=== PATIENT | male | born 1965 | race Hispanic/Latino ===

== ENCOUNTER 2023-01-17 17:26 | Emergency (ER) | payer SELFPAY ==
--- NOTE | 2023-01-17 19:11 | RAD REPORT ---
EXAM DESCRIPTION: RAD - Chest Single View - 01/17/2023 7:04 pm CLINICAL HISTORY: SWELLING Chest pain. COMPARISON: No comparisons FINDINGS: Portable technique limits examination quality. Mild interstitial pulmonary edema. The heart is mildly enlarged in size. No displaced fractures. IMPRESSION: Mild CHF.
--- NOTE | 2023-01-17 19:21 | RAD REPORT ---
EXAM DESCRIPTION: US - Extrem Venous W Compress Gagan - 01/17/2023 7:16 pm CLINICAL HISTORY: Swelling;Pain Bilateral leg edema and swelling. COMPARISON: No comparisons TECHNIQUE: Real-time sonographic interrogation of the left and right lower extremity deep venous sys tems was performed. FINDINGS: Normal compressibility, flow augmentation, phasic flow and spontaneous flow is identified in both the left and right lower extremity deep venous systems. IMPRESSION: No sonographic evidence of left or right lower extremity deep venous thrombosis.
[2023-01-17] MEDS ORDERED: FUROSEMIDE 20 MG/ 2ML VIAL ONE (20:42)
[2023-01-17 21:17] LABS: Absolute Lymphocytes (CBC) 1.2 K/uL (0.7-4.9); Hematocrit 44.5 % (39.6-49.0); Lymphocytes % 22.4 % (15.3-44.8); MCV 89.6 fL (80-100); MPV 7.6 fL (7.6-11.3); RBC Red Blood Cell Count 4.97 M/uL (4.33-5.43)
[2023-01-17 22:22] LABS: Protime INR 1.08
[2023-01-17 22:35] LABS: Albumin 3.5 g/dL (3.4-5.0); Bilirubin Direct 0.2 mg/dL (0-0.2); Bilirubin Indirect, Calculated 0.5 mg/dL (0.2-0.8); Bilirubin Total 0.7 mg/dL (0.2-1.0); Magnesium 2.2 mg/dL (1.6-2.4); Potassium 3.3 mEq/L (3.5-5.1); Protein, Total 7.3 g/dL (6.4-8.2); Troponin High Sensitivity 7.7 pg/mL (<58.9)
--- NOTE | 2023-01-17 23:12 | EDPHYS ---
Physician Documentation [facility] Name: Ashko Pruett Age: 57 yrs Sex: Male : 1965 Arrival Date: 01/17/2023 Time: 17:26 Bed 14 Private MD: ED Physician Jase Sparks HPI: 01/17 18:00 This 57 yrs old Male presents to ER via Ambulatory with complaints of Leg Pain.cp 18:00 The patient presents with swelling, tenderness, erythema. The complaints affect the cp left lower leg and right lower leg. Context: resulted from an unknown cause, the patient can fully bear weight, the patient is able to ambulate, with mild difficulty. Onset: The symptoms/episode began/occurred 3 day(s) ago. 18:00 Associated signs and symptoms: Pertinent positives: calf tenderness, swelling, warmth, cp Pertinent negatives fever, numbness. 18:00 Patient reports in the past he was treated for fluid buildup but has been taking water cp pill from [place] that has not helped. Historical: - Allergies: 17:37 No Known Allergies; cm10 - PMHx: 17:37 Hypertensive disorder; cm10 - Immunization history:: Adult Immunizations up to date, . - Social history:: Smoking status: Patient denies any tobacco usage or history of. Patient/guardian denies using. ROS: 18:05 Eyes: Negative for injury, pain, redness, and discharge. cp 18:05 Constitutional: Negative for body aches, chills, fever, poor PO intake. 18:05 ENT: Negative for drainage from ear(s), ear pain, sore throat, difficulty swallowing, difficulty handling secretions. 18:05 Cardiovascular: Positive for edema, Negative for chest pain, palpitations. 18:05 Respiratory: Positive for shortness of breath, Negative for cough, wheezing. 18:05 Abdomen/GI: Negative for abdominal pain, nausea, vomiting, and diarrhea. 18:05 Neuro: Negative for altered mental status, dizziness, headache, numbness, syncope, weakness. 18:05 All other systems are negative. Exam: 18:10 Constitutional: The patient appears in no acute distress, alert, awake, cp non-diaphoretic, non-toxic, well developed, well nourished, obese. 18:10 Head/Face: Normocephalic, atraumatic. cp 18:10 Eyes: Periorbital structures: appear normal, Conjunctiva: normal, no exudate, no injection, Sclera: no appreciated abnormality, Lids and lashes: appear normal, bilaterally. 18:10 ENT: External ear(s): are unremarkable, Nose: is normal, Mouth: Lips: moist, Oral mucosa: pink and intact, moist, Posterior pharynx: is normal, airway is patent, no erythema, no exudate. 18:10 Neck: ROM/movement: is normal, is supple, without pain, no range of motions limitations. 18:10 Chest/axilla: Inspection: normal. 18:10 Cardiovascular: Rate: normal, Rhythm: regular, Edema: pedal edema, that is moderate, ankle edema, that is moderate, JVD: is not appreciated. 18:10 Respiratory: the patient does not display signs of respiratory distress, Respirations: normal, no use of accessory muscles, no retractions, labored breathing, is not present, Breath sounds: are clear throughout, no decreased breath sounds, no stridor, no wheezing. 18:10 Abdomen/GI: Inspection: obese Palpation: abdomen is soft and non-tender, in all quadrants. 18:10 Back: pain, is absent, ROM is normal. 18:10 Skin: cellulitis, that is moderate, well demarcated, on the left lower leg and right lower leg. 18:10 Neuro: Orientation: to person, place \T\ time. Mentation: is normal, Motor: moves all fours, strength is normal. 18:17 ECG was reviewed by the Attending Physician. cp Vital Signs: 17:34 BP 132 / 81; Pulse 81; Resp 17; Temp 98.1; Pulse Ox 96% ; Weight 131.09 kg; Height 5 cm10 ft. 10 in. ; Pain 1/10; 18:10 BP 142 / 76; Pulse 72; Resp 14; Pulse Ox 97% on R/A; db 21:30 BP 141 / 85; Pulse 73; Resp 18; Pulse Ox 98% on R/A; ha1 22:30 BP 128 / 70; Pulse 75; Resp 20 S; Pulse Ox 97% on R/A; ha1 23:30 BP 113 / 67; Pulse 83; Resp 18 S; Pulse Ox 96% on R/A; ha1 17:34 Body Mass Index 41.47 (131.09 kg, 177.8 cm) cm10 17:34 Pain Scale: Adult cm10 MDM: 17:43 Patient medically screened. cp 20:00 Differential diagnosis: DVT, cellulitis, sepsis. cp 23:10 Data reviewed: vital signs, nurses notes, lab test result(s), EKG, radiologic studies, cp plain films, ultrasound. 23:10 Consideration of Admission/Observation Escalation of care including cp admission/observation considered. I considered the following discharge prescriptions or medication management in the emergency department Medications were administered in the Emergency Department. See MAR. Care significantly affected by the following chronic conditions: Hypertension, Obesity. Counseling: I had a detailed discussion with the patient and/or guardian regarding: the historical points, exam findings, and any diagnostic results supporting the discharge/admit diagnosis, lab results, radiology results, the need for outpatient follow up, a family practitioner, to return to the emergency department if symptoms worsen or persist or if there are any questions or concerns that arise at home. ED course: VSS. Labs and radiology studies reviewed. Will treat outpatient and discharge to home for continued monitoring. 01/17 17:44 Order name: Basic Metabolic Panel; Complete Time: 22:37 cp 06/08 22:42 Interpretation: Normal except: K 3.3; GLUC 113. cp / 17:44 Order name: CBC with Diff; Complete Time: 21:26 cp 06/08 17:44 Order name: LFT's; Complete Time: 22:37 cp 06/08 17:44 Order name: Magnesium; Complete Time: 22:37 cp /08 17:44 Order name: NT PRO-BNP; Complete Time: 22:37 cp 06/08 22:44 Interpretation: Reviewed. cp 06/08 17:44 Order name: PT-INR; Complete Time: 22:37 cp 06/08 17:44 Order name: Troponin HS; Complete Time: 22:37 cp 06/08 22:43 Interpretation: Troponin HS 7.7; Reviewed. cp 06/08 19:47 Order name: Lactate w/ 2H reflex if indic.; Complete Time: 21:54 cp 06/08 19:47 Order name: Blood Culture Adult (2) cp 06/08 19:48 Order name: Urinalysis W/Microscopic cp /08 17:44 Order name: XRAY Chest (1 view); Complete Time: 19:23 cp 06/08 17:44 Order name: US Extremity Venous W Compression Gagan; Complete Time: 19:23 cp 01/17 17:44 Order name: EKG; Complete Time: 17:46 cp 01/17 17:44 Order name: Cardiac monitoring; Complete Time: 18:18 cp 01/17 17:44 Order name: EKG - Nurse/Tech; Complete Time: 18:18 cp 01/17 17:44 Order name: IV Saline Lock; Complete Time: 18:18 cp 01/17 17:44 Order name: Labs collected and sent; Complete Time: 18:18 cp 01/17 17:44 Order name: O2 Per Protocol; Complete Time: 18:18 cp 01/17 17:44 Order name: O2 Sat Monitoring; Complete Time: 18:18 cp 01/17 21:25 Order name: Misc. Order: Recollect BLUE AND GREEN TOP; Complete Time: 21:45 rv1 EC:17 Rate is 74 beats/min. Rhythm is regular. GA interval is normal. QRS interval is normal. cp QT interval is normal. Interpreted by me. Reviewed by me. Administered Medications: 20:40 Drug: Furosemide IVP 20 mg Route: IVP; Site: left antecubital; ha1 21:00 Follow up: Response: No adverse reaction ha1 23:08 Drug: Piperacillin-Tazobactam IVPB 4.5 grams Route: IVPB; Infused Over: 60 mins; Site: ha1 left antecubital; 01/18 00:03 Follow up: Response: No adverse reaction; IV Status: Completed infusion; IV Intake: ha1 100ml Disposition: :19 Co-signature as Attending Physician, Jase FITCH was immediately available on-site ms3 in the Emergency Department for consultation in the care of the patient. Disposition Summary: 01/17/23 23:11 Discharge Ordered Location: Home cp Problem: new cp Symptoms: have improved cp Condition: Stable cp Diagnosis - Cellulitis of left lower limb cp - Cellulitis of right lower limb cp - Edema, unspecified cp Followup: cp - With: Private Physician - When: 1 - 2 days - Reason: Recheck today's complaints Discharge Instructions: - Discharge Summary Sheet cp - Cellulitis, Adult cp - Edema cp Forms: - Medication Reconciliation Form cp - Thank You Letter cp - Antibiotic Education cp - Prescription Opioid Use cp Prescriptions: - Augmentin 875-125 mg Oral Tablet - take 1 tablet by ORAL route every 12 hours for 10 days; 20 tablet; Refills: 0, cp Product Selection Permitted - Lasix 20 mg Oral Tablet - take 1 tablet by ORAL route once daily for 7 days; 14 tablet; Refills: 0, cp Product Selection Permitted Signatures: Dispatcher [employer] EDMS Michael Reaves, MANAGER OF PMO-C MANAGER OF PMO-Cla1 Jeremiah Lu PA PA Jase Harris DO DO ms3 Brigida Saldaña, RN RN ha1 Ashley Gruber rv1 Whitney Davidson, RN RN cm10 Corrections: (The following items were deleted from the chart) 01/19 00:01/18 18:05 Constitutional: Negative for body aches, chills, fever, poor PO intake, cp cp 01/19 00:01/18 18:05 Cardiovascular: Positive for edema, Negative for chest pain, palpitations, cp cp 01/19 00:01/18 18:05 Respiratory: Positive for shortness of breath, Negative for cough, cp wheezing, cp 01/19 00:01/18 18:05 Abdomen/GI: Negative for abdominal pain, nausea, vomiting, and diarrhea, cp cp 01/19 00:01/18 18:05 Eyes: Negative for injury, pain, redness, and discharge, cp cp 01/19 00:01/18 18:05 ENT: Negative for drainage from ear(s), ear pain, sore throat, difficulty cp swallowing, difficulty handling secretions, cp 01/19 00:01/18 18:05 Neuro: Negative for altered mental status, dizziness, headache, numbness, cp syncope, weakness, cp 01/19 00:01/18 18:05 All other systems are negative, cp cp
--- NOTE | 2023-01-17 23:12 | ER ---
Nurse's Notes [facility] Name: Ashok Pruett Age: 57 yrs Sex: Male : 1965 Arrival Date: 01/17/2023 Time: 17:26 Bed 14 Private MD: Diagnosis: Cellulitis of left lower limb;Cellulitis of right lower limb;Edema, unspecified Presentation: 01/17 17:34 Chief complaint: Patient states: Pt reports bilateral leg pain and swelling x3 days. cm10 Patient states that the left leg is more swollen than the right. Coronavirus screen: Vaccine status: Patient reports being unvaccinated. Ebola Screen: No symptoms or risks identified at this time. Initial Sepsis Screen: Does the patient meet any 2 criteria? No. Patient's initial sepsis screen is negative. Does the patient have a suspected source of infection? No. Patient's initial sepsis screen is negative. Risk Assessment: Do you want to hurt yourself or someone else? Patient reports no desire to harm self or others. Onset of symptoms was January 14, 2023. 17:34 Method Of Arrival: Ambulatory cm10 17:34 Acuity: [place] 3 cm10 Triage Assessment: 17:37 General: Appears in no apparent distress. distressed, comfortable, Behavior is calm, cm10 cooperative, appropriate for age. Pain: Complains of pain in right leg and left leg Pain Quality of pain is described as sensitivity Pain began Is. Musculoskeletal: Reports pain and swelling. Historical: - Allergies: 17:37 No Known Allergies; cm10 - PMHx: 17:37 Hypertensive disorder; cm10 - Immunization history:: Adult Immunizations up to date, . - Social history:: Smoking status: Patient denies any tobacco usage or history of. Patient/guardian denies using. Screenin:20 [facility] ED Fall Risk Assessment (Adult) History of falling in the last 3 months, db including since admission No falls in past 3 months (0 pts) Confusion or Disorientation No (0 pts) Intoxicated or Sedated No (0 pts) Impaired Gait No (0 pts) Mobility Assist Device Used No (0 pt) Altered Elimination No (0 pt) Score/Fall Risk Level 0 - 2 = Low Risk Oriented to surroundings, Maintained a safe environment. Abuse screen: Denies threats or abuse. Denies injuries from another. Nutritional screening: No deficits noted. Tuberculosis screening: No symptoms or risk factors identified. Assessment: 18:19 Reassessment: Patient appears in no apparent distress at this time. Patient and/or db family updated on plan of care and expected duration. Pain level reassessed. Patient is alert, oriented x 3, equal unlabored respirations, skin warm/dry/pink. bilateral leg swelling and redness. General: Appears in no apparent distress. comfortable, Behavior is calm, cooperative. Pain: Complains of pain in right leg and left leg. Neuro: Level of Consciousness is awake, alert, obeys commands, Oriented to person, place, time, situation, Speech is normal. Respiratory: Airway is patent Respiratory effort is even, unlabored, Respiratory pattern is regular, symmetrical. Derm:. 19:15 General: Appears comfortable, Behavior is calm, cooperative. Pain: Complains of pain in ha1 right leg and left leg Pain does not radiate. Pain currently is 4 out of 10 on a pain scale. Neuro: Level of Consciousness is awake, alert, obeys commands, Oriented to person, place, time, situation. Cardiovascular: Patient's skin is warm and dry. Respiratory: Airway is patent Respiratory effort is even, unlabored, Respiratory pattern is regular, symmetrical. GI: No signs and/or symptoms were reported involving the gastrointestinal system. Abdomen is non-distended, obese. : No signs and/or symptoms were reported regarding the genitourinary system. EENT: No signs and/or symptoms were reported regarding the EENT system. Derm: Skin is normal. Musculoskeletal: Swelling present in right leg and left leg. 20:30 Reassessment: Patient and/or family updated on plan of care and expected duration. Pain ha1 level reassessed. Patient is alert, oriented x 3, equal unlabored respirations, skin warm/dry/pink. 21:30 Reassessment: Patient and/or family updated on plan of care and expected duration. Pain ha1 level reassessed. Patient is alert, oriented x 3, equal unlabored respirations, skin warm/dry/pink. 22:30 Reassessment: Patient and/or family updated on plan of care and expected duration. Pain ha1 level reassessed. Patient is alert, oriented x 3, equal unlabored respirations, skin warm/dry/pink. 23:30 Reassessment: Patient and/or family updated on plan of care and expected duration. Pain ha1 level reassessed. Patient is alert, oriented x 3, equal unlabored respirations, skin warm/dry/pink. awaiting for medication infusion to be finish. Vital Signs: 17:34 BP 132 / 81; Pulse 81; Resp 17; Temp 98.1; Pulse Ox 96% ; Weight 131.09 kg; Height 5 cm10 ft. 10 in. ; Pain 1/10; 18:10 BP 142 / 76; Pulse 72; Resp 14; Pulse Ox 97% on R/A; db 21:30 BP 141 / 85; Pulse 73; Resp 18; Pulse Ox 98% on R/A; ha1 22:30 BP 128 / 70; Pulse 75; Resp 20 S; Pulse Ox 97% on R/A; ha1 23:30 BP 113 / 67; Pulse 83; Resp 18 S; Pulse Ox 96% on R/A; ha1 17:34 Body Mass Index 41.47 (131.09 kg, 177.8 cm) cm10 17:34 Pain Scale: Adult cm10 ED Course: 17:33 Patient arrived in ED. cm10 17:34 Jeremiah Lu PA is PHCP. cp 17:34 Jase Sparks DO is Attending Physician. cp 17:37 Triage completed. cm10 17:39 Arm band placed on Patient placed in an exam room, on a stretcher. cm10 17:53 Nano Taylor, RN is Primary Nurse. db 18:06 Inserted saline lock: 22 gauge in left antecubital area, using aseptic technique. sg5 ,using aseptic technique. difusex. 18:20 Patient has correct armband on for positive identification. Bed in low position. Call db light in reach. Side rails up X2. 19:05 XRAY Chest (1 view) In Process Unspecified. EDMS 19:18 US Extremity Venous W Compression Gagan In Process Unspecified. EDMS 21:10 Inserted saline lock: 22 gauge in left wrist, using aseptic technique. Blood collected. oe 01/18 00:05 No provider procedures requiring assistance completed. IV discontinued, intact, ha1 bleeding controlled, No redness/swelling at site. Pressure dressing applied. Administered Medications: 01/17 20:40 Drug: Furosemide IVP 20 mg Route: IVP; Site: left antecubital; ha1 21:00 Follow up: Response: No adverse reaction ha1 23:08 Drug: Piperacillin-Tazobactam IVPB 4.5 grams Route: IVPB; Infused Over: 60 mins; Site: [facility] left antecubital; 01/18 00:03 Follow up: Response: No adverse reaction; IV Status: Completed infusion; IV Intake: ha1 100ml Medication: 01/17 18:20 VIS not applicable for this client. db Intake: 01/18 00:03 IV: 100ml; Total: 100ml. ha1 Outcome: 01/17 23:11 Discharge ordered by MD. branch 01/18 00:05 Discharged to home ambulatory, with family. ha1 Condition: stable Discharge instructions given to patient, family, Instructed on discharge instructions, follow up and referral plans. medication usage, Demonstrated understanding of instructions, follow-up care, medications, Prescriptions given X 2. 00:12 Patient left the ED. ha1 Signatures: Dispatcher [employer] EDMS Jeremiah Lu PA PA cp Espinosa, Orlando oe Ayala, Heidy RN RN ha1 Nano Taylor RN RN db Galvan, Stephanie, RN RN sg5 Whitney Davidson, RN RN cm10
[2023-01-17] MEDS ORDERED: NA CHLORIDE 0.9% 100 ML ONE (23:15)
[2023-01-17] MEDS ORDERED: PIPERACIL/TAZO 4.5 GM VIAL IV ONE (23:15)
[2023-01-17 23:17] LABS: Specific Gravity 1.009 (1.005-1.030); Urine Bacteria None Seen /HPF (<20); Urine Bilirubin NEGATIVE (Negative); Urine Blood Negative (Negative); Urine Clarity Clear (Clear); Urine Color Colorless (Yellow); Urine Crystals Unidentified Few /HPF (None Seen); Urine Glucose NEGATIVE (Negative); Urine Mucus Slight /HPF (None Seen); Urine Protein NEGATIVE (Negative); Urine RBC <5 /HPF (None Seen); Urine Urobilinogen Normal (Normal); Urine pH 5.5 (5.0-7.0)
[2023-01-18 00:41] VITALS: TEMP 98.1
[2023-01-18 00:44] VITALS: BP 128/70; O2SAT 97
--- NOTE | 2023-01-18 14:47 | EKG ---
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
== END 2023-01-18 00:12 | disposition home or self-care (01) ==
LOC: ER 17:26
DX: L03.116 Cellulitis of left lower limb (principal); L03.115 Cellulitis of right lower limb
CPT/HCPCS: 36415; 71045; 80048; 80076; 81001; 83605; 83735; 83880; 84484; 85025; 85610; 87040; 93005; 93970; 96365; 96375; 99284; J1940